=== PATIENT | female | born 1960 | race Caucasian/White ===

== ENCOUNTER → 2022-12-26 | Outpatient (CLI) | payer OTHER | LOC: MC.RAD 10:27 | DX: Z12.31 Encounter for screening mammogram for malignant neoplasm of breast (principal) ==

== ENCOUNTER → 2024-02-27 | Outpatient (CLI) | payer OTHER | LOC: MC.RAD 10:15 | DX: Z12.31 Encounter for screening mammogram for malignant neoplasm of breast (principal) ==